=== PATIENT | male | born 1960 | race Caucasian/White ===

== ENCOUNTER 2016-09-02 20:20 | Emergency (ER) | payer OTHER ==
[2016-09-02] MEDS ORDERED: LIDOCAINE HCL 2% MPF SOL SC ONE (20:24)
[2016-09-02] MEDS ORDERED: LIDOCAINE HCL 2% MPF SOL ONE (20:24)
[2016-09-02] MEDS ORDERED: LIDOCAINE 1% W/EPI MPF 10 ML SOL ONE (20:47)
[2016-09-02] MEDS ORDERED: LIDOCAINE 1% W/EPI MPF 10 ML SOL INFIL ONE (20:48)
[2016-09-02 21:14] VITALS: RESP 16
[2016-09-02 21:27] VITALS: TEMP 96.6
[2016-09-02] MEDS ORDERED: APAP/HYDROCODONE 325/5 TAB PO ONE (21:27)
[2016-09-02] MEDS ORDERED: CEPHALEXIN 250 MG/5 ML BOTTLE PO ONE (21:28)
[2016-09-02] MEDS ORDERED: BACITRACIN 500 U/GM OIN TOP ONE ×2 (21:28→21:29)
[2016-09-02] MEDS ORDERED: APAP/HYDROCODONE 325/5 TAB ONE (21:33)
[2016-09-02] MEDS ORDERED: CEPHALEXIN 250 MG/5 ML BOTTLE ONE (21:33)
[2016-09-02 22:31] VITALS: BP 128/66; PULSE 59; O2SAT 99
== END 2016-09-02 22:00 | disposition home or self-care (01) ==
LOC: ED 20:20
DX: S62.633B Displaced fracture of distal phalanx of left middle finger, initial encounter for open fracture (principal); S62.635B Displaced fracture of distal phalanx of left ring finger, initial encounter for open fracture; W45.8XXA Other foreign body or object entering through skin, initial encounter; W29.8XXA Contact with other powered hand tools and household machinery, initial encounter
CPT/HCPCS: 12001; 64450; 73130; 99285

== ENCOUNTER 2017-04-25 15:07 | Emergency (ER) | payer MEDICARE, OTHER ==
[2017-04-25 15:26] VITALS: RESP 20; TEMP 97.6
[2017-04-25 15:47] VITALS: BP 155/82; PULSE 62; O2SAT 99
== END 2017-04-25 16:39 | disposition home or self-care (01) | DRG 552 ==
LOC: ED 15:07
DX: S16.1XXA Strain of muscle, fascia and tendon at neck level, initial encounter (principal); Z98.1 Arthrodesis status
CPT/HCPCS: 72125; 99282; 99283; L0130